=== PATIENT | male | born 2000 | race Caucasian/White ===

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

== ENCOUNTER 2023-05-11 09:35 | Emergency (ER) | payer OTHER ==
[2023-05-11] MEDS ORDERED: Acetaminophen 500 MG Tab PO ONE (09:49)
[2023-05-11] MEDS ORDERED: Lidocaine 1% 5 ML VIAL INJECT ONE (09:49)
[2023-05-11] MEDS ORDERED: Bacitracin Oint 28.35 GM Tube TOP ONE (10:49)
== END 2023-05-11 11:10 | disposition home or self-care (01) ==
LOC: MW.ED 09:35
DX: S01.111A Laceration without foreign body of right eyelid and periocular area, initial encounter (principal); V89.2XXA Person injured in unspecified motor-vehicle accident, traffic, initial encounter; Y92.410 Unspecified street and highway as the place of occurrence of the external cause
CPT/HCPCS: 12011; 70450; 99284; A9270; 99283; J3490

== ENCOUNTER 2023-05-12 20:14 | Emergency (ER) | payer SELFPAY | END 2023-05-12 21:14 | disposition home or self-care (01) | LOC: MW.ED 20:14 | DX: H11.31 Conjunctival hemorrhage, right eye (principal) | CPT/HCPCS: 99282 ==

== ENCOUNTER 2023-05-16 10:55 | Emergency (ER) | payer SELFPAY | END 2023-05-16 11:15 | disposition left against medical advice (07) | LOC: MW.ED 10:55 | DX: Z48.02 Encounter for removal of sutures (principal) | CPT/HCPCS: 99281 ==

== ENCOUNTER 2023-05-18 13:44 | Emergency (ER) | payer SELFPAY | END 2023-05-18 15:03 | disposition left against medical advice (07) | LOC: MW.ED 13:44 | DX: Z48.02 Encounter for removal of sutures (principal) | CPT/HCPCS: 99281 ==

== ENCOUNTER 2024-04-12 10:41 | Emergency (ER) | payer SELFPAY ==
[2024-04-12] MEDS ORDERED: Sodium Chloride 0.9% 2.5 ML Syringe FLUSH PRN (13:12)
[2024-04-12] MEDS ORDERED: Sodium Chloride 0.9% 10 ML Syringe FLUSH PRN (13:12)
[2024-04-12] MEDS: Ondansetron 4 MG/2 ML SDV IVPUSH STA (13:54)
[2024-04-12] MEDS: Morphine 4 MG/ML Syringe IVPUSH STA (13:55)
[2024-04-12 14:01] LABS: BASOPHILS ABSOLUTE AUTO 0.02 K/uL (0.00-0.20); BASOPHILS PERCENT AUTO 0.2 % (0.0-1.0); EOSINOPHILS ABSOLUTE AUTO 0.02 K/uL (0.00-0.45); EOSINOPHILS PERCENT AUTO 0.2 % (0.0-6.0); HEMATOCRIT 48.3 % (42.0-52.0); IMMATURE GRAN ABSOLUTE AUTO 0.05 K/uL (0.00-0.05); IMMATURE GRAN PERCENT AUTO 0.5 % (0.0-0.4); LYMPHOCYTES ABSOLUTE AUTO 0.42 K/uL (1.00-4.80); LYMPHOCYTES PERCENT AUTO 4.2 % (24.0-44.0); MEAN CORPUSCULAR HEMOGLOBIN 27.4 pg (28.0-32.0); MEAN CORPUSCULAR HGB CONC 33.1 g/dL (32.0-36.0); MEAN CORPUSCULAR VOLUME 82.6 fL (83.0-99.0); MEAN PLATELET VOLUME 9.6 fL (9.4-12.4); MONOCYTES ABSOLUTE AUTO 0.36 K/uL (0.00-0.80); MONOCYTES PERCENT AUTO 3.6 % (0.0-8.0); NEUTROPHILS ABSOLUTE AUTO 9.12 K/uL (1.80-7.70); NEUTROPHILS PERCENT AUTO 91.3 % (41.0-71.0); PLATELET COUNT,PLT 256 K/uL (150-400); RED BLOOD CELL COUNT 5.85 M/uL (4.52-5.90); WHITE BLOOD CELL COUNT,WBC 9.99 K/uL (3.9-11.3)
[2024-04-12 14:24] LABS: A/G RATIO 0.8 (0.9-1.6); ALBUMIN 3.4 g/dL (3.4-5.0); BILIRUBIN TOTAL 0.8 mg/dL (0.2-1.0); CALCIUM 8.8 mg/dL (8.5-10.1); CARBON DIOXIDE,CO2 27.3 mmol/L (21.0-32.0); CREATININE 1.1 mg/dL (0.8-1.3); EST CRCL DRUG DOSING (CG) 123.51 mL/min; POTASSIUM,K 4.5 mmol/L (3.5-5.1); PROTEIN TOTAL,TP 7.8 g/dL (6.4-8.2)
[2024-04-12] MEDS: Iopamidol 755 MG/ML 500 ML Multipack Bottle IVPUSH STA (15:41)
== END 2024-04-12 15:58 | disposition home or self-care (01) ==
LOC: MW.ED 10:41
DX: A08.4 Viral intestinal infection, unspecified (principal); K76.0 Fatty (change of) liver, not elsewhere classified; F17.210 Nicotine dependence, cigarettes, uncomplicated; Z90.89 Acquired absence of other organs; Z79.899 Other long term (current) drug therapy; Z75.8 Other problems related to medical facilities and other health care
CPT/HCPCS: 36415; 74177; 80053; 83690; 85025; 87428; 96374; 96375; 99284; J2270; J2405; Q9967

== ENCOUNTER 2024-06-05 23:32 | Emergency (ER) | payer OTHER | END 2024-06-06 02:20 | disposition home or self-care (01) | LOC: MW.ED 23:32 | DX: M26.602 Left temporomandibular joint disorder, unspecified (principal); G43.909 Migraine, unspecified, not intractable, without status migrainosus | CPT/HCPCS: 99283 ==